=== PATIENT | female | born 1935 | race Caucasian/White ===

== ENCOUNTER 2023-08-06 10:07 | Emergency (ER) | payer MEDICARE, SELFPAY ==
--- NOTE | ~2023-08-06 | XR_ITS ---
EXAMINATION: XR foot RT min 3V DATE: 08/06/2023 10:45 INDICATION: Right foot pain and erythema. TECHNIQUE: 4 views of right foot were obtained. COMPARISON: None. FINDINGS: There is mild hallux valgus. No fracture. There is severe osteoarthritis of first metatarso phalangeal joint and mild osteoarthritis of many of the interphalangeal joints and midfoot joints. Th ere is moderate osteoarthritis of some of the interphalangeal joints of the third-fifth toes. 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 There are enthesophytes at the posterior and plantar aspects of calcaneal tuberosity. IMPRESSION: 1. Polyarticular osteoarthritis. 2. Mild hallux valgus. Reviewed, dictated and finalized at location E.
[2023-08-06 10:15] VITALS: BP 139/61; PULSE 102; RESP 18; TEMP 36.4; O2SAT 98
--- NOTE | 2023-08-06 10:49 | ED.EXTPRO ---
HPI - Extremity Problem General Chief complaint: Extremity Problem,Nontraumatic Stated complaint: right foot pain Time Seen by Provider: 08/06/23 10:21 Source: patient Mode of arrival: ambulatory Limitations: no limitations History of Present Illness HPI Narrative: This is a 87-year-old female who presents to the ED with chief complaint of right foot pain for the past week and worse in the past couple of days. Reports pain, swelling and erythema to the 1st MTP. Reports known history of bunion in this area but this feels worse. States the redness has spread slightly over the past week. Denies any injury or recent infection. Denies streaking up the leg or ankle. Denies fevers, chills, nausea, vomiting, inability to bear weight. Related Data Allergies Allergy/AdvReac Type Severity Reaction Status Date / Time codeine Allergy Unknown Vomiting Verified 08/06/23 10:17 Review of Systems Review of Systems: All systems as dictated in HPI Exam Narrative: GENERAL: Well-appearing, well-nourished, and in no acute distress. HEAD: Normocephalic, atraumatic. EYES: PERRLA and EOMI. ENT: Nares clear, no rhinorrhea or epistaxis. Mucous membranes moist. Oropharynx without tonsillar hypertrophy exudate or other lesions. NECK: Supple. No adenopathy or masses. CHEST: No respiratory distress. Clear to auscultation. No wheezes rales or rhonchi HEART: Regular rate and rhythm. No murmur heard. Normal peripheral pulses. ABDOMEN: Soft, nontender, nondistended, normal active bowel sounds. MSK: Moderate tenderness noted to the 1st MTP on the right foot. Mild swelling in this area as well. No significant effusion. Neurovascularly intact distally. SKIN: Moderate erythema noted to the 1st MTP on the right foot. Warm, dry, no rash. No crepitus NEURO: Alert and oriented x3. No focal deficits. PSYCH: Normal mood and affect. Course Vital Signs Vital signs: Vital Signs Temperature 97.5 F L 08/06/23 10:15 Pulse Rate 102 H 08/06/23 10:15 Respiratory Rate 18 08/06/23 10:15 Blood Pressure 139/61 08/06/23 10:15 Pulse Oximetry 98 08/06/23 10:15 Temperature 97.5 F L 08/06/23 10:15 Pulse Rate 84 08/06/23 13:03 Respiratory Rate 16 08/06/23 13:03 Blood Pressure 109/54 L 08/06/23 13:03 Pulse Oximetry 98 08/06/23 13:03 MDM - Extremity (Nontraumatic) MDM Narrative Medical decision making narrative: This is a an 87 year old female who presents to the ED with chief complaint of right 1st MTP pain for the past week. Vitals are normal. Exam shows erythema, warmth and tenderness throughout the right 1st MTP. X-ray of the foot shows polyarticular arthritis and mild hallux valgus. Lab work reveals normal white count, normal CRP. BUN and creatinine elevated, expected at advanced age. ESR elevated to 54. Clinically presentation and symptoms are consistent with gout. We discussed that a joint aspiration at probably has risks outweighed the benefits further diagnostics today. No obvious infectious signs and white count is normal. Will treat this as gout with steroids. She is comfortable following a PCP. 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 Pt will be discharged in stable condition. Return precautions given and supportive measures discussed. Pt is understanding and agreeable with plan for discharge and follow-up with PCP. Lab Data 08/06/23 11:18 08/06/23 11:19 Labs: Lab Results 08/06/23 08/06/23 Range/Units 11:18 11:19 WBC 7.4 (4.5-10.0) K/mm3 RBC 3.79 L (4.2-5.4) M/mm3 Hgb 11.6 L (12.0-15.0) g/dL Hct 36.5 L (37.0-47.0) % MCV 96.3 (80-100) fl MCH 30.6 (26-34) pg MCHC 31.8 L (32-36) g/dl RDW 12.1 (11.5-14.5) % Plt Count 225 (150-375) k/mm3 MPV 9.1 (7.4-10.4) fl Immature Gran % (Auto) 0.3 (0-0.5) % Neut % (Auto) 79.9 H (45.5-73.1) % Lymph % (Auto) 8.5 L (18.3-44.2) % [place] % (Auto) 9.7 H (2.6-8.5)
[2023-08-06] MEDS: predniSONE 20 MG TABLET 40 MG PO (11:12)
[2023-08-06 11:23] VITALS: BP 102/60; PULSE 79; RESP 18; O2SAT 98
[2023-08-06 11:32] LABS: Basophils Percent Auto 0.4 % (0.2-1.2); Eosinophils Absolute Auto 0.1 K/mm3 (0-0.3); Eosinophils Percent Auto 1.2 % (0-4.4); Hematocrit 36.5 % (37.0-47.0); Hemoglobin 11.6 g/dL (12.0-15.0); Immature Granulocyte Absolute 0.02 K/mm3 (0.00-0.031); Immature Granulocyte Percent A 0.3 % (0-0.5); Lymphocytes Absolute Auto 0.63 K/mm3 (0.9-3.2); Lymphocytes Percent Auto 8.5 % (18.3-44.2); Mean Corpuscular HGB Conc 31.8 g/dl (32-36); Mean Corpuscular Hemoglobin 30.6 pg (26-34); Mean Corpuscular Volume 96.3 fl (80-100); Mean Platelet Volume 9.1 fl (7.4-10.4); Monocytes Absolute Auto 0.7 K/mm3 (0.1-0.6); Monocytes Percent Auto 9.7 % (2.6-8.5); Neutrophils Percent Auto 79.9 % (45.5-73.1); Platelet Count Result 225 k/mm3 (150-375); Red Blood Count 3.79 M/mm3 (4.2-5.4); Red Cell Distribution Width 12.1 % (11.5-14.5); White Blood Count 7.4 K/mm3 (4.5-10.0)
[2023-08-06 11:44] LABS: Alanine Aminotransferase 14 U/L (6-35); Albumin Level 4.1 g/dL (3.5-5.1); Alkaline Phosphatase 57 U/L (38-126); Anion Gap 4 mmol/L (8-16); Aspartate Amino Transferase 22 U/L (14-36); Bilirubin,Total 0.6 mg/dL (0.2-1.3); Blood Urea Nitrogen 45 mg/dL (7-17); CRP 0.6 mg/dL (<1.0); Calcium 9.9 mg/dL (8.4-10.2); Carbon Dioxide 31 mmol/L (22-30); Chloride 100 mmol/L (98-107); Estimated CRCL calculation 21 ml/min; Estimated Glomerular Filt Rate 28; Glucose 109 mg/dL (65-110); Sodium 135 mmol/L (137-145)
[2023-08-06 12:46] LABS: Erythrocyte Sedimentation Rate 54 mm/hr (0-20)
[2023-08-06 13:03] VITALS: BP 109/54; PULSE 84; RESP 16; O2SAT 98
== END 2023-08-06 13:04 | disposition home or self-care (01) ==
PROVIDERS: Emergency Provider Physician Assistant; PCP Internal Medicine
DX: M10.9 Gout, unspecified (principal)
CPT/HCPCS: 36415; 73630; 80053; 85025; 85652; 86140; 99283; J7512

== ENCOUNTER 2023-08-20 16:26 | Outpatient (CLI) | payer MEDICARE, SELFPAY ==
[2023-08-20 18:48] LABS: Uric Acid 9.1 mg/dL (2.5-7.5)
== END 2023-08-20 16:27 | disposition home or self-care (01) ==
LOC: ANHLAB 16:30
PROVIDERS: PCP Internal Medicine; Visit Provider Podiatrist Foot & Ankle Surgery
DX: M10.079 Idiopathic gout, unspecified ankle and foot (principal)
CPT/HCPCS: 36415; 84550

== ENCOUNTER 2023-11-21 11:27 | Outpatient (CLI) | payer MEDICARE, SELFPAY ==
[2023-11-21 12:45] LABS: Alanine Aminotransferase 17 U/L (6-35); Albumin Level 4.7 g/dL (3.5-5.1); Alkaline Phosphatase 63 U/L (38-126); Anion Gap 10 mmol/L (4-12); Aspartate Amino Transferase 29 U/L (14-36); Bilirubin,Total 0.5 mg/dL (0.2-1.3); Blood Urea Nitrogen 43 mg/dL (7-17); Carbon Dioxide 31 mmol/L (22-30); Chloride 98 mmol/L (98-107); Estimated Glomerular Filt Rate 33; Glucose 94 mg/dL (65-110); Potassium 4.2 mmol/L (3.4-5.0); Sodium 139 mmol/L (137-145); Uric Acid 3.8 mg/dL (2.5-7.5)
== END 2023-11-21 11:28 | disposition home or self-care (01) ==
LOC: ANHLAB 11:33
PROVIDERS: PCP Internal Medicine; Visit Provider Podiatrist Foot & Ankle Surgery
DX: M10.071 Idiopathic gout, right ankle and foot (principal)
CPT/HCPCS: 36415; 80053; 84550

== ENCOUNTER 2024-02-21 10:33 | Outpatient (CLI) | payer MEDICARE, SELFPAY ==
[2024-02-21 11:00] LABS: Alanine Aminotransferase 15 U/L (6-35); Albumin Level 4.4 g/dL (3.5-5.1); Alkaline Phosphatase 72 U/L (38-126); Anion Gap 6 mmol/L (4-12); Aspartate Amino Transferase 30 U/L (14-36); Bilirubin,Total 0.4 mg/dL (0.2-1.3); Blood Urea Nitrogen 42 mg/dL (7-17); Carbon Dioxide 32 mmol/L (22-30); Chloride 100 mmol/L (98-107); Estimated Glomerular Filt Rate 27; Glucose 87 mg/dL (65-110); Potassium 4.4 mmol/L (3.4-5.0); Sodium 138 mmol/L (137-145); Uric Acid 3.7 mg/dL (2.5-7.5)
== END 2024-02-21 10:34 | disposition home or self-care (01) ==
PROVIDERS: PCP Internal Medicine; Visit Provider Podiatrist Foot & Ankle Surgery
DX: M10.9 Gout, unspecified (principal)
CPT/HCPCS: 36415; 80053; 84550

== ENCOUNTER 2025-02-26 11:12 | Outpatient (CLI) | payer MEDICARE, SELFPAY ==
[2025-02-26 12:15] LABS: Alanine Aminotransferase 18 U/L (6-35); Albumin Level 4.3 g/dL (3.5-5.1); Alkaline Phosphatase 75 U/L (38-126); Anion Gap 7 mmol/L (4-12); Aspartate Amino Transferase 30 U/L (14-36); Bilirubin,Total 0.4 mg/dL (0.2-1.3); Blood Urea Nitrogen 28 mg/dL (7-17); Calcium 9.6 mg/dL (8.4-10.2); Carbon Dioxide 29 mmol/L (22-30); Chloride 103 mmol/L (98-107); Estimated Glomerular Filt Rate 31; Glucose 103 mg/dL (65-110); Potassium 4.2 mmol/L (3.4-5.0); Sodium 139 mmol/L (137-145); Total Protein 7.4 g/dL (6.3-8.2); Uric Acid 3.9 mg/dL (2.5-7.5)
--- OUTSIDE RECORDS SUMMARY | 2025-02-26 13:19 | XMS_ITS | Encounter Summary ---
Author Organization [facility] Healthcare Address [address] [place] [address] Care Team Providers Care Halal Meat Packer Name Role Phone Stevenson Rhodes MD Primary Care Provider [phone] Reason for Visit * Reason Onset Date Comments ready to scheduled 06/19/2022 Encounter Details Date Type Department Care Team (Late st Contact Info) Description 06/19/[address] 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
--- OUTSIDE RECORDS SUMMARY | 2025-02-26 13:19 | XMS_ITS | Clinical Summary ---
Author Organization [facility] Address [address] [place] [address] Care Team Providers Care Digital Music Instructor Name Role Phone Stevenson Rhodes MD Primary Care Provider Allergies Active Allergy Reactions Criticality Noted Date Comments Codeine Unknown 03/19/2012 Medications aspirin 81 mg chewable tablet Acti ve metroNIDAZOLE 0.75 % lotionIndications: Acne Rosacea Apply topically once daily to face 50 mL 3 8 Active febuxostat (ULORIC) 40 mg tablet Take 1 tablet (40 mg total) by mouth daily 5 Active pravastatin (PRAVACHOL) 40 mg tablet Take 1 tablet (40 mg total) by mouth daily 90 tablet 1 5 Active lisinopriL (PRINIVIL,ZESTRIL) 20 mg tabletIndications: Elevated serum creatinine,Mixed hyperlipidemia Take 1 tablet (20 mg total) by mouth daily 30 tablet 11 5 07/17/19 26 Active Active Problems No known active problems Encounters Date Type Department Care Team Description 02/18/2025 Results Follow-Up [facility] [address] [place] [address] Stevenson Rhodes MD Screening Mammogram Bilateral W Jonas 02/17/2025 11:00 AM CDT - 02/17/2025 11:59 PM CDT Hospital Encounter [facility] [address] [place] [address] Screening mammogram, encounter for Discharge Disposition: Discharge to home or self care 01/02/2025 11:30 AM CDT Office Visit [facility] Medicine Dermatology [address] [place] [address] Shikha Ocampo MD Family history of nonmelanoma skin cancer (Primary Dx); Inflammatory papule; Lentigines from Last 3 Months Immunizations Immunization Administration Dates Next Due Influenza, Quadrivalent, Hig h Dose, Preservative Free, Intrr 01/20/2020 Influenza, Trivalent, Adjuvanted, Intramuscular 01/22/2024 Pneumococcal Conjugate Pcv20 02/05/2024 RSV, Bivalent, Protein Subun it Rsvpref, Diluent (Abrysvo) 01/31/2023 ZOSTER Recombinant 07/04/2021,03/22/2021 Surgical History Surgery Date Site/Laterality Comments IN HEMORRHOIDECTOMY INTERNAL RUBBER BAND LIGATIONS Hemorrhoidectomy - 1970 (Added by TW Conv) TUBAL LIGATION Medical History Medical History Date Comments Personal history of other di seases of the circulatory system History of hypertension - (A dded by TW Conv) Personal history of diseases of skin or subcutaneous tissue History of rosacea - (Added by TW Conv) Hypertension GERD (gastroesophageal reflux disease) Hyperlipidemia Dysphagia Fatty liver Lung nodules Family History Medical History Relation Name Comments Asthma Daughter Family history of asthma - (Added by TW Conv) Breast cancer Father's Sister Skin cancer Mother Diabetes type II Other 1 Type 2 Diab etes Mellitus - (Added by TW Conv) Heart disease Other 2 Heart Disease - (Added by TW Conv) Breast cancer Paternal Grandmother Relation Name Status Comments Daughter Father's Sister Mother Other 1 Other 2 Paternal Grandmother Social History Tobacco Use Types Packs/Day Years Used Date Smoking Tobacco: Former Smokeless Tobacco: Never Tobacco Cessation:Counseling Given: Not Answered AUDIT-C Answer Date Recorded Q1: How often do you have a drink containing alc ohol? Monthly or less 07/10/2022 Q2: How many drinks containi ng alcohol do you have on a typical day when you are drinking? 1 or 2 07/10/2022 Q3: How often do you have si x or more drinks on one occasion? 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 Gender Identity Not on file Sexual Orientation Not on file Obstetrics History Para Term AB IAB SAB Ectopic Multiple Livin g Live Births 2 2 Date Outcome GA Total Labor Labor/2nd/3rd Weight Sex Type Anes PTL Ngoc A1 A5 Name Clin Last Filed Vital Signs Vital Sign Reading Time Taken Comments Blood Pressure 105/65 07/08/2024 1:58 PM RECEIVING DISTRIBUTION STATION OPERATOR Pulse 120 07/08/2024 1:58 PM RECEIVING DISTRIBUTION STATION OPERATOR Temperature 36.5 C (97.7 F) 07/10/2022 11:15 AM RECEIVING DISTRIBUTION STATION OPERATOR Respiratory Rate 16 07/10/2022 12:22 PM RECEIVING DISTRIBUTION STATION OPERATOR Oxygen Saturation 95% 07/10/2022 12:22 PM RECEIVING DISTRIBUTION STATION OPERATOR Inhaled Oxygen Concentration - - Weight 77.1 kg (170 lb) 02/17/2025 11:09 AM CDT Height 162.6 cm (5' 4) 02/17/2025 11:09 AM CDT Body Mass Index 29.18 02/17/2025 11:09 AM CDT Plan of Treatment Scheduled Procedures Name Priority Associated Diagnoses Date/Ti me ESOPHAGOGASTRODUODENOSCOPY Dysphagia, unspecified type GERD without esophagitis ESOPHAGOGASTRODUODENOSCOPY Dysphagia, unspecified type Health Maintenance Due Date Last Done Comments DTaP/Tdap/Td Vaccine (1 - Tdap) 08/14/1946 Hepatitis B Screening 08/14/1953 Osteoporosis Screening-Bone Density Scan 05/20/2023 05/20/2021 Covid-19 Vaccine (2024-2 6 season) 2025 09/19/2023, 12/01/2022, 01/25/2022, Additional history exists Influenza Vaccine (#1) 2025 01/22/2024, 2019 Depression Screening 07/08/2025 07/08/2024, 07/04/2023, 05/30/2022, Additional history exists Fall Risk Assessment 07/08/2025 07/08/2024, 07/04/2023, 07/10/2022, Additional history exists Well Visit 65+ 07/08/2025 07/08/2024, 02/2 05/2023, 05/30/2022, Additional history exists Zoster Vaccine Completed 07/04/2021, 03/22/2021 Pneumococcal vaccine 65+ Completed 02/05/2024 Procedures Procedure Name Priority Date/Time Associated Diagnosis Comments SCREENING MAMMOGRAM BILATERAL W JONAS Schedule Routine, Read Routine (OP Routine) 02/17/2025 11:15 AM CDT Screening mammogram, encounter for DEXA AXIAL SKELETON BONE DENSITY 1 OR MORE SITES Schedule Routine, Read Routine (OP Routine) 05/20/2021 1:18 PM RECEIVING DISTRIBUTION STATION OPERATOR Osteopenia, unspecified location Osteoporosis, unspecified osteoporosis type, unspecified pathological fracture presence from Last 3 Months or Most Recently Relevant to Health Maintenance Results * Screening Mammogram Bilateral W Jonas (02/17/2025 11:15 AM CDT) Anatomical Region Laterality Modality Breast Bilateral Mammography Impressions 02/18/2025 1:01 PM CDT Bilateral No evidence of malignancy in either breast. OVERALL BI-RADS FINAL ASSESSMENT: 2 - Benign RECOMMENDATION: Recommend bilateral annual screening mammography. Decision to continue screening mammography should be made based on clinical factors. Narrative 02/18/2025 1:01 PM CDT EXAMINATION: Screening Mammogram Bilateral W Jonas: 02/17/2025 COMPARISON: Relevant prior studies available at the time of interpretation were reviewed, including the most recent mammogram on: 02/11/2024. TECHNIQUE: Mammography was performed with 2D and 3D digital breast tomosynthesis (DBT) images. CAD was utilized. BREAST PARENCHYMAL COMPOSITION: There are scattered areas of fibroglandular density. FINDINGS: Bilateral There is no suspicious mass, calcification, or architectural distortion in either breast. us Self Screening Mammogram IMG MAMMO PROCEDURES Fi nal Result * Dexa Axial Skeleton Bone Density 1 or 2 Site (05/20/2021 1:18 PM RECEIVING DISTRIBUTION STATION OPERATOR) Anatomical Region Laterality Modality Body N/A Radiographic Raina ging Narrative 05/20/2021 2:18 PM RECEIVING DISTRIBUTION STATION OPERATOR Patient Name: Megha Stafford Date of : 1935 Date of scan: 05/20/2021 Bone mineral density was performed on a [employer] Discovery Densitometer. Based on machine cross-calibration and precision studies the least significant changes of this densitometer is 0.024 g/cm2 at the spine, 0.020 g/cm2 at the total proximal femur, and 0.014g/cm2 at the forearm. HISTORY: This is a 85 y.o. postmenopausal female with a history of rheumatoid arthritis. She reports that she has quit smoking. She does not have any smokeless tobacco history on file. She was previously treated with alendronate (Fosamax) and glucocorticoids. INDICATIONS: Menopause status and history of glucocorticoids use. FINDINGS: BONE MINERAL DENSITY OF THE LUMBAR SPINE Bone Mineral Density (BMD) of the lumbar spine was measured from L1-L3 and the average density was calculated to be 1.051 gm/cm2. This corresponds to a T-score (standard deviations from the mean of young adults) of 0.3. There is no previous study available for comparison. BONE MINERAL DENSITY OF THE PROXIMAL FEMUR Bone Mineral Density (BMD) of the left hip total was found to be 0.981 gm/cm2. This corresponds to a T-score standard deviations from the mean of young adults of 0.3. Femoral neck is 0.772 gm/cm2 with a T-score (standard deviations from the mean of young adults) of -0.7. There is no previous study available for comparison. SUMMARY: Bone mineral density is near the young adult normal mean with no increased risk for fracture. L4 excluded from bone mineral density analysis of the lumbar spine because of bone density being more than 1 standard deviation discrepant relative to one adjacent vertebra. Clinical correlation is recommended. ADDITIONAL COMMENTS: Postmenopausal Women and Men Over 50: Diagnostic criteria: Osteoporosis: BMD at or below -2.5 T-score; Osteopenia (low bone mass): BMD between -1.0 and -2.5 T-score. If the patient has a history of a fragility fracture, a fracture that occurred with trauma equivalent to a fall from a standing position or less, then the diagnosis is osteoporosis regardless of bone density. The history and data sections of the bone mineral density scan were prepared by Katheryn FREDERICK) who is accredited by the International Society of Clinical Densitometry. The overall patient assessment and scan interpretation were performed by Clint Cody M.D. who is certified by the International Society of Clinical Densitometry. [id number] Stevenson Rhodes MD IMG DXA PROCEDURES Final Resu lt from Last 3 Months or Most Recently Relevant to Health Maintenance Insurance MEDICARE [facility] [place] [id number] [facility] MEDICARE [employer] MEDICARE SUPPLEMENT MEDICARE [facility] MEDICARE SUPPLEMENT Advance Directives For more information, please contact: [phone] * Full Code (Latest Code Status on File) Date Activated Date Inactivated Comments 07/10/2022 10:58 AM 07/10/2022 4:40 PM Care Teams Digital Music Instructor Relationship Specialty Start Date End Date Stevenson Rhodes MD PCP - General Internal Medicine 03/02/20
--- OUTSIDE RECORDS SUMMARY | 2025-02-26 13:19 | XMS_ITS | Encounter Summary ---
Author Organization [facility] Address [address] [place] [address] Care Team Providers Care Work Measurement Engineer Name Role Phone Stevenson Rhodes MD Primary Care Provider [phone] Encounter Details Date Type Department Care Team (Late st Contact Info) Description 02/18/2025 Results Follow-Up [facility] [address] [facility] [address] [place] [address] Stevenson Rhodes MD [address] [place] [address] [address] [place], [place] [id number] Screening Mammogram Bilateral W Jonas Social History Tobacco Use Types Packs/Day Years Used Date Smoking Tobacco: Former Smokeless Tobacco: Never AUDIT-C Answer Date Recorded Q1: How often [...] on file Legal Sex Female 1:11 AM FINANCIAL COMPLIANCE 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
--- OUTSIDE RECORDS SUMMARY | 2025-02-26 13:19 | XMS_ITS | Clinical Summary ---
Author Organization [facility] Address [address] [place] [address] Care Team Providers Care Automobile Travel Club Counselor Name Role Phone Unavailable Primary Care Provider Unavailabl e Source Comments [facility],non-owned Affiliates and Associated Physician Practices is amultiple site organization consisting of ambulatory clinics and hospital sitesin [place], [place], [place] and [place]. This disclosure is being madepursuant to the Care Everywhere program and may not contain all information available regarding this patient. Last updated 18.[facility] Social History Tobacco Use Types Packs/Day Years Used Date Smoking Tobacco: Never Assessed Comments Unknown Sex and Gender Information Value Date Recorded Sex Assigned at Not on file Legal Sex Female 6:23 AM SLAG MOTOR OPERATOR Gender Identity Not on file Sexual Orientation Not on file Plan of Treatment Health Maintenance Due Date Last Done Comments BONE DENSITY TESTING 1935 DTAP/TDAP/TD VACCINES (1 - Tdap) 08/14/1954 PNEUMOCOCCAL VACCINE 50+ (1 of 1 - PCV) 08/14/1985 ZOSTER VACCINE (1 of 2) 08/14/1985 Respiratory Syncytial Virus (RSV) Vaccine Pt: or over 60 yrs (1 - 1-dose 75+ series) 08/14/2010 DEPRESSION SCREENING 05/14/2024 COVID-19 VACCINE ( - 2023-2 5 season) 2025 INFLUENZA VACCINE (#1) 2025 HEPATITIS B VACCINE Aged Out No longe r eligible based on patient's age to complete this topic HIB VACCINE Aged Out No longer eligi ble based on patient's age to complete this topic HPV VACCINE Aged Out No longer eligi ble based on patient's age to complete this topic MENINGOCOCCAL (Group B) VACC INE SHARED DECISION-MAKING Aged Out No longer eligibl e based on patient's age to complete this topic MENINGOCOCCAL GROUPS A/C/Y/W VACCINE Aged Out No longer eligible b ased on patient's age to complete this topic
== END 2025-02-26 11:13 | disposition home or self-care (01) ==
PROVIDERS: PCP Internal Medicine; Visit Provider Podiatrist Foot & Ankle Surgery
DX: M10.071 Idiopathic gout, right ankle and foot (principal)
CPT/HCPCS: 36415; 80053; 84550